=== PATIENT | female | born 1980 | race Caucasian/White ===

== ENCOUNTER 2018-01-07 15:35 | Observation (INO) | payer OTHER ==
[~2018-01-07] VITALS: Ht 157.5 cm; Wt 81.2 kg
[2018-01-07] MEDS ORDERED: METOPROLOL TARTRATE 50 MG TAB PO ONE (17:30)
[2018-01-07 17:57] LABS: BASOPHILS # (AUTO) 0.1 (0.0-0.1); BASOPHILS % 0.6 % (0.0-1.0); EOSINOPHILS # (AUTO) 0.2 (0.0-0.4); EOSINOPHILS % 1.8 % (0.0-6.0); HEMATOCRIT 40.7 % (34.2-44.1); HEMOGLOBIN 13.3 g/dL (12.0-16.0); LYMPHOCYTES # (AUTO) 2.1 (1.0-3.2); LYMPHOCYTES % 21.6 % (18.0-39.1); MEAN CORPUSCULAR HEMOGLOBIN 33.9 pg (28-32); MEAN CORPUSCULAR HGB CONC 32.7 g/dL (31-35); MEAN CORPUSCULAR VOLUME 103.8 fL (81-99); MONOCYTES # (AUTO) 0.6 (0.2-0.8); MONOCYTES % 5.9 % (4.4-11.3); NEUTROPHILS # (AUTO) 6.6 (2.1-6.9); NEUTROPHILS % 69.6 % (38.7-80.0); PLATELET COUNT 256 x10e3/uL (140-360); RED BLOOD COUNT 3.92 x10e6/uL (3.6-5.1); RED CELL DISTRIBUTION WIDTH 14.7 % (11.7-14.4)
[2018-01-07] MEDS ORDERED: ENOXAPARIN SODIUM INJ 100 MG/ML SYR SC SCH ×2 (18:00→20:00)
[2018-01-07] MEDS ORDERED: RIVAROXABAN 10 MG TABLET PO NR (18:00)
[2018-01-07] MEDS ORDERED: SODIUM CHLORIDE FLUSH 10 ML SYR INJ PRN (18:00)
[2018-01-07] MEDS ORDERED: ASPIRIN 81 MG CHEW TAB PO ONE (18:00)
[2018-01-07 18:12] LABS: INR 0.91; PROTHROMBIN TIME 13.1 seconds (11.9-14.5)
[2018-01-07 18:13] LABS: PARTIAL THROMBOPLASTIN TIME 26.6 seconds (23.8-35.5)
[2018-01-07] MEDS ORDERED: METOPROLOL TARTRATE 25 MG TAB PO SCH (18:15)
[2018-01-07 18:21] LABS: ALANINE AMINOTRANSFERASE 16 IU/L (0-55); ALBUMIN 3.3 g/dL (3.5-5.0); ALBUMIN/GLOBULIN RATIO 0.9 (0.8-2.0); ALKALINE PHOSPHATASE 70 IU/L (40-150); ANION GAP 13.8 mmol/L (8-16); BLOOD UREA NITROGEN 14 mg/dL (7-26); BUN/CREATININE RATIO 13 (6-25); CALCIUM 8.7 mg/dL (8.4-10.2); CARBON DIOXIDE 16 mmol/L (22-29); CHLORIDE 113 mmol/L (98-107); CREATININE, SERUM 1.05 mg/dL (0.57-1.11); EST GLOMERULAR FILTRATION RATE 59 ML/MIN (60-); GLUCOSE 73 mg/dL (74-118); POTASSIUM 3.8 mmol/L (3.5-5.1); SODIUM 139 mmol/L (136-145)
[2018-01-07 18:32] LABS: CREATINE KINASE 28 IU/L (29-168)
[2018-01-07] MEDS: SODIUM CHLORIDE 0.9% 1000ML 1,000 ML IV SCH (18:37)
--- NOTE | 2018-01-07 19:58 | Diagnostic Imaging Report ---
EXAM: CT CHEST W DATE: 01/07/2018 5:53 PM INDICATION: DVT COMPARISON: None TECHNIQUE: Multidetector CT scanning of the chest was performed. Coronal and sagittal multiplanar reformations were obtained. PE protocol. CT low dose techniques were utilized, as applicable. IV Contrast: 100 ml Isovue 370/300 FINDINGS: There are bilateral pulmonary emboli involving the right interlobar artery extending into the segmental and subsegmental levels of the right middle and lower lobe, and left inferior lobar artery extending into the segmental and subsegmental left lower lobe and lingular arteries. LUNGS AND PLEURA: Peripheral left basilar opacity. No edema. No effusions or pneumothorax. HEART, MEDIASTINUM, VESSELS: Normal heart size without CT evidence of right heart strain. Main pulmonary artery is normal in caliber, 2.2 cm. No pericardial effusion. No adenopathy. UPPER ABDOMEN: Note is made of a small fat-containing left Bochdalek hernia. Postsurgical change status post gastric sleeve with small hiatal hernia. Cholecystectomy. MUSCULOSKELETAL: No acute findings. IMPRESSION: 1. Positive for bilateral pulmonary emboli, as above. No CT evidence of right heart strain. 2. Focal left basilar atelectasis and/or small infarct. Discussed with Physician: RICHIE BORJAS MD at 7:56 PM on 01/07/2018. Signed by: Dr Génesis Etienne MD on 01/07/2018 7:56 PM
[2018-01-07] MEDS ORDERED: ENOXAPARIN INJ 80 MG/0.8 ML SYR SC ONE (20:06)
[2018-01-07] MEDS: ENOXAPARIN INJ 80 MG/0.8 ML SYR SC SCH (20:15)
[2018-01-07] MEDS ORDERED: POTASSIUM CHLOR8 ME1 PO (20:22)
[2018-01-07] MEDS ORDERED: TIZANIDINE HCL4 MG PO (20:22)
[2018-01-07] MEDS ORDERED: TRAZODONE HCL100 MG PO (20:22)
[2018-01-07] MEDS ORDERED: CYMBALTA30 MG PO (20:22)
[2018-01-07] MEDS ORDERED: CLONAZEPAM0.5 M1 PO (20:22)
[2018-01-07] MEDS ORDERED: JUNEL FE 1 MG-1 EACH PO (20:22)
[2018-01-07] MEDS ORDERED: BUPROPION HCL150 M2 PO (20:22)
[2018-01-07] MEDS ORDERED: PROMETHAZINE HC25 M1 PO (20:22)
[2018-01-07] MEDS ORDERED: ATENOLOL25 MG PO (20:22)
[2018-01-07] MEDS ORDERED: ACETAZOLAMIDE500 M1 PO (20:22)
[2018-01-07] MEDS ORDERED: BUSPIRONE HCL10 MG PO (20:22)
[2018-01-07] MEDS ORDERED: AMITRIPTYLINE H50 MG PO (20:22)
[2018-01-07] MEDS ORDERED: PROPRANOLOL HCL20 MG PO (20:22)
[2018-01-07] MEDS ORDERED: VIIBRYD40 MG PO (20:22)
[2018-01-07] MEDS ORDERED: ONDANSETRON HCL INJ 2 MG/ML VIAL IV PRN (20:30)
[2018-01-07] MEDS ORDERED: MORPHINE SULFATE 2 MG/ML SYR IV PRN (20:30)
[2018-01-07] MEDS ORDERED: IOPAMIDOL 370 MG/ML 200 ML INFUS..BTL INJ ONE (20:45)
[2018-01-07] MEDS ORDERED: SODIUM CHLORIDE 0.9% 50ML 50 ML ONE (20:45)
[2018-01-07] MEDS ORDERED: ENOXAPARIN INJ 80 MG/0.8 ML SYR SC SCH (21:00)
[2018-01-07 21:44] VITALS: BP 130/66
[2018-01-07 21:53] VITALS: BP 130/66
[2018-01-07] MEDS ORDERED: NEXIUM20 MG PO (23:29)
[2018-01-07] MEDS ORDERED: CEPHALEXIN500 MG PO (23:29)
[2018-01-07] MEDS ORDERED: NATURE-THROID130 MG PO (23:29)
[2018-01-07] MEDS ORDERED: QUETIAPINE FUM100 MG PO (23:29)
[2018-01-07] MEDS ORDERED: BUSPIRONE HCL 5 MG TAB PO PRN (23:45)
[2018-01-07] MEDS ORDERED: CLONAZEPAM 0.5 MG TAB PO PRN (23:45)
[2018-01-07] MEDS ORDERED: TIZANIDINE HCL 4 MG TAB PO PRN (23:45)
[2018-01-08] VITALS (7 sets, daily range): BP systolic 119–166; BP diastolic 60–90
[2018-01-08] MEDS ORDERED: PROMETHAZINE HCL 25 MG TAB PO PRN
[2018-01-08] MEDS ORDERED: PROMETHAZINE HCL 25 MG TAB PO SCH
[2018-01-08 03:02] LABS: BASOPHILS % 0.3 % (0.0-1.0); EOSINOPHILS # (AUTO) 0.2 (0.0-0.4); EOSINOPHILS % 2.4 % (0.0-6.0); HEMATOCRIT 36.6 % (34.2-44.1); HEMOGLOBIN 12.2 g/dL (12.0-16.0); LYMPHOCYTES # (AUTO) 2.6 (1.0-3.2); LYMPHOCYTES % 29.1 % (18.0-39.1); MEAN CORPUSCULAR HEMOGLOBIN 33.9 pg (28-32); MEAN CORPUSCULAR HGB CONC 33.3 g/dL (31-35); MEAN CORPUSCULAR VOLUME 101.7 fL (81-99); MONOCYTES # (AUTO) 0.5 (0.2-0.8); MONOCYTES % 5.4 % (4.4-11.3); NEUTROPHILS # (AUTO) 5.5 (2.1-6.9); NEUTROPHILS % 62.2 % (38.7-80.0); PLATELET COUNT 224 x10e3/uL (140-360); RED CELL DISTRIBUTION WIDTH 14.7 % (11.7-14.4)
[2018-01-08 03:13] LABS: ALANINE AMINOTRANSFERASE 13 IU/L (0-55); ALBUMIN 2.7 g/dL (3.5-5.0); ALBUMIN/GLOBULIN RATIO 0.9 (0.8-2.0); ALKALINE PHOSPHATASE 55 IU/L (40-150); ANION GAP 11.4 mmol/L (8-16); BLOOD UREA NITROGEN 9 mg/dL (7-26); BUN/CREATININE RATIO 10 (6-25); CALCIUM 7.9 mg/dL (8.4-10.2); CARBON DIOXIDE 13 mmol/L (22-29); CHLORIDE 116 mmol/L (98-107); CHOL/HDL RATIO 2.5 (3.0-3.6); CHOLESTEROL 163 MD/DL (0-199); CREATININE, SERUM 0.87 mg/dL (0.57-1.11); EST GLOMERULAR FILTRATION RATE > 60 ML/MIN (60-); GLUCOSE 118 mg/dL (74-118); HDL CHOLESTEROL 65 MG/DL (40-60); LDL CHOLESTEROL 31 MG/DL (60-130); POTASSIUM 3.4 mmol/L (3.5-5.1); SODIUM 137 mmol/L (136-145); TRIGLYCERIDES 337 MG/DL (0-149)
[2018-01-08 03:33] LABS: CREATINE KINASE 23 IU/L (29-168)
--- NOTE | 2018-01-08 04:41 | Consultation ---
DATE OF CONSULTATION: January 07, 2018 PULMONARY MEDICINE CONSULT REFERRING PHYSICIAN: Dr. Macias, outpatient physician. Dr. Quintana, hospital physician REASON FOR REFERRAL: Thromboembolic disease. HISTORY: Mrs. Paula is a pleasant 37-year-old female with thromboembolic disease. The patient 3 weeks ago had right arm pain. The distribution was from her wrist all the way to her shoulder. The patient claims that she went to the emergency room and she was recommended to take some aspirin. The patient was diagnosed with superficial thrombophlebitis at that time. The patient states that the arm condition did get better. For the last 3 days, she has been having right leg pain. The patient was having trouble mobilizing. She was having trouble going upstairs. She was urged to come to the emergency room where she had some evaluation done. The patient was diagnosed with popliteal and posterior tibial vein thrombosis. Thigh veins were not noted to have venous thrombosis per the preliminary findings. The patient was admitted for further care. CT of the chest demonstrates 22 mm main pulmonary artery, nodular solid opacity with low attenuation changes in the middle of the lesion just under the pleura. Otherwise bilateral pulmonary emboli were noted. The patient is a long-time smoker. The patient furthermore was obese, but went through bariatric surgery. The patient is on estrogen pellets called [employer] for 4 years which according to the internet says is estradiol related. PAST MEDICAL HISTORY 1. Obesity, status post gastric sleeve in July 2013. Weight is changed from 200 pounds and now is at 163 pounds. 2. Pseudotumor cerebri, still active but improved. 3. PTSD. 4. Degenerative joint disease. 5. Reported bipolar disorder with schizophrenia. CURRENT MEDICATIONS: Medication list reviewed per electronic record. ALLERGIES: NO KNOWN DRUG ALLERGIES. SOCIAL HISTORY: She smokes 1 pack per day since age 15 to now. No heavy alcohol. Cocaine, she snored it daily for 4 years a long time ago, but never did IV drugs. 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 She lives with her . FAMILY HISTORY: Noncontributory to this. No abdominal disease in the family. REVIEW OF SYSTEMS GENERAL: No unintentional weight changes. OPHTHALMOLOGIC: No double vision. ENT: No dry mouth. PULMONARY: No asthma. IMMUNOLOGIC: No allergies. CARDIAC: No heart attacks. GI: No constipation. : No blood in the urine. MUSCULOSKELETAL: Some back pain. NEUROLOGIC: No seizures. PSYCHIATRIC: Euthymic recently. PHYSICAL EXAMINATION VITAL SIGNS: Afebrile, vital signs noted per electronic record, stable. HEENT: Normocephalic, atraumatic. NECK: Supple. Trachea midline. LUNGS: Bilateral air entry, limited but clear. CARDIOVASCULAR: S1, S2. No murmurs, rubs, or gallops. ABDOMEN: Soft, nontender. EXTREMITIES: No clubbing and no cyanosis. There is minimal discrepancy in leg size. INTEGUMENT: No rash and no purpura. LABS: BUN 14, creatinine 1.0, and bicarbonate 16. White count 10, hematocrit 41, and platelets 251,000. LFTs are normal. IMPRESSION 1. Bilateral pulmonary emboli. 2. Right distal deep venous thrombosis. 3. Active smoker. 4. Active use of estrogen-related products. 5. History of sleeve gastrectomy in 2013. 6[address] lung nodule, low attenuation at center but not at fat density 7. History of post-traumatic stress disorder. 8. Sedentary job. 9. History of morbid obesity and pseudotumor cerebri. 10. Degenerative joint disease. PLAN: Continue blood thinners at appropriate dosing. The patient is to have an echo. She requires ambulation. If she is able to tolerate these, then she can probably be discharged sooner rather than later given these small residual DVTs present in her. The patient was counseled highly to stop smoking and to stop the estrogen replacement and she can possibly come off anticoagulation after 3 to 6 months of time once the estrogen implant effects have dissipated. The patient should continue vitamins for gastrectomy. The patient is recommended for [address] chest to re-assess the lung lesion. BNP level will be checked to assess heart strain. Thank you very much Dr. Macias and Dr. Dagoberto Quintana for allowing me a chance to participate in the care of Mrs. Paula. Please do not hesitate to contact me if I could help in any way. Job#: [id number] RTY MTDD
[2018-01-08] MEDS: THYROID 60 MG TAB PO SCH (05:43)
[2018-01-08] MEDS: SODIUM CHLORIDE 0.9% 1000ML 1,000 ML IV SCH ×2 (05:43→14:00)
[2018-01-08] MEDS ORDERED: NORETHINDRONE ACETATE PO SCH (09:00)
[2018-01-08] MEDS ORDERED: [UNRECOGNIZED DRUG - OTHER] PO SCH (09:00)
[2018-01-08] MEDS ORDERED: ETHINYL ESTRADIOL PO SCH (09:00)
[2018-01-08] MEDS ORDERED: FERROUS FUMARATE PO SCH (09:00)
[2018-01-08] MEDS: ENOXAPARIN INJ 80 MG/0.8 ML SYR SC SCH ×2 (09:29→20:42)
[2018-01-08] MEDS: FAMOTIDINE 20 MG/2 ML VIAL IV SCH ×2 (09:29→20:42)
[2018-01-08] MEDS: POTASSIUM CHLORIDE 10 MEQ TABCR PO SCH (09:29)
[2018-01-08] MEDS: PROPRANOLOL HCL 10 MG TAB PO SCH (09:29)
[2018-01-08] MEDS: ATENOLOL 50 MG TAB PO SCH (09:30)
[2018-01-08] MEDS: BUPROPION HCL SR 150 MG TAB PO SCH (09:30)
[2018-01-08] MEDS: PANTOPRAZOLE SOD 40 MG TABEC PO SCH (09:30)
[2018-01-08] MEDS: CEPHALEXIN 500 MG CAP PO SCH ×4 (09:30→20:42)
[2018-01-08 12:40] LABS: CREATINE KINASE 24 IU/L (29-168)
[2018-01-08] MEDS ORDERED: XARELTO20 MG PO (14:37)
[2018-01-08] MEDS ORDERED: XARELTO15 MG PO (14:37)
--- NOTE | 2018-01-08 20:54 | Progress Note ---
DATE: January 08, 2018 PULMONARY MEDICINE PROGRESS NOTE SUBJECTIVE: Ms. Paula was seen and examined at bedside. Echo showed 60% to 65% left ventricular ejection fraction with estimated RVSP of 23 mmHg. Patient today mobilized to restroom without any problems. Patient without any new worsened leg tightness nor chest pain. REVIEW OF SYSTEMS: No headaches, no rash. OBJECTIVE VITALS: Afebrile, vital signs noted per electronic record. GENERAL: No acute distress, alert and calm. HEENT: Normocephalic, atraumatic. NECK: Supple. Throat midline. LUNGS: Bilateral air entry, clear. CARDIOVASCULAR: S1 and S2. No murmurs, rubs or gallops. ABDOMEN: Soft and nontender. EXTREMITIES: No clubbing, no cyanosis. There is only minimal change in the lower legs. INTEGUMENT: No rash. No purpura. LABS: Potassium 3.4, BUN 9, and creatinine 0.9. White count 9 and hematocrit 37. IMPRESSION AND PLAN 1. Acute pulmonary emboli. 2. Distal deep venous thrombosis. 3. Chronic smoker. 4. History of estrogen implants. Continue anticoagulation at this time. Patient remained on acetazolamide for pulmonary indication. Continue other medicines. I have counseled her on the need for anticoagulation as of now undetermined period o time as still not clear me how long these supposed to be affecting the patient with estrogen. Patient needs to quit smoking. Patient today will begin mobilization and she is doing good. Consideration for this drug soon can be done as remnant of the venous thrombosis appeared to be small and distal. I have talked to her about different anticoagulants and she agrees to try now anticoagulants. Job#: [id number] [facility]CK[facility]
[2018-01-08] MEDS ORDERED: AMITRIPTYLINE HCL 25 MG TAB PO SCH (21:00)
[2018-01-08] MEDS ORDERED: TRAZODONE HCL 50 MG TAB PO SCH (21:00)
[2018-01-08] MEDS ORDERED: QUETIAPINE FUMARATE 100 MG TAB PO SCH (21:00)
[2018-01-08] MEDS ORDERED: ACETAZOLAMIDE 500 MG CAP PO SCH (21:00)
[2018-01-09] MEDS: SODIUM CHLORIDE 0.9% 1000ML 1,000 ML IV SCH
[2018-01-09 00:19] VITALS: BP 143/98
[2018-01-09 04:00] VITALS: BP 123/73
[2018-01-09] MEDS: THYROID 60 MG TAB PO SCH (05:52)
[2018-01-09 07:53] VITALS: BP 102/56
[2018-01-09] MEDS: POTASSIUM CHLORIDE 10 MEQ TABCR PO SCH (08:34)
[2018-01-09] MEDS: PANTOPRAZOLE SOD 40 MG TABEC PO SCH (08:34)
[2018-01-09] MEDS: FAMOTIDINE 20 MG/2 ML VIAL IV SCH (08:34)
[2018-01-09] MEDS: PROPRANOLOL HCL 10 MG TAB PO SCH (08:34)
[2018-01-09] MEDS: CEPHALEXIN 500 MG CAP PO SCH (08:34)
[2018-01-09] MEDS: BUPROPION HCL SR 150 MG TAB PO SCH (08:34)
[2018-01-09] MEDS: ATENOLOL 50 MG TAB PO SCH (08:34)
[2018-01-09] MEDS: ENOXAPARIN INJ 80 MG/0.8 ML SYR SC SCH (08:34)
[2018-01-09 08:37] VITALS: BP 102/56
== END 2018-01-09 11:43 | disposition home or self-care (01) ==
LOC: ER 15:35 → ERHOLD 20:51 → INTOOBSV 20:51 → MED/SURG 21:08
DX: I26.99 Other pulmonary embolism without acute cor pulmonale (principal); I82.431 Acute embolism and thrombosis of right popliteal vein; I82.441 Acute embolism and thrombosis of right tibial vein; I10 Essential (primary) hypertension; F20.9 Schizophrenia, unspecified; F31.9 Bipolar disorder, unspecified; Z98.84 Bariatric surgery status; G93.2 Benign intracranial hypertension; F43.10 Post-traumatic stress disorder, unspecified; M19.90 Unspecified osteoarthritis, unspecified site; F17.210 Nicotine dependence, cigarettes, uncomplicated; R91.8 Other nonspecific abnormal finding of lung field; Z79.818 Long term (current) use of other agents affecting estrogen receptors and estrogen levels
CPT/HCPCS: 36415 ×2; 71260; 80053 ×2; 80061; 82550 ×2; 82553 ×2; 83880; 84443; 84484 ×2; 84702; 85025 ×2; 85610; 85730; 93306; 93971; 99284; G0378 ×3; J1650 ×3; J7030 ×2; Q9967; S0164 ×2

== ENCOUNTER 2019-06-14 10:54 | Emergency (ER) | payer OTHER ==
[~2019-06-14] VITALS: Ht 157.5 cm; Wt 81.2 kg
[~2019-06-14 10:54] MED LIST: ACETAZOLAMIDE500 M1 PO; AMITRIPTYLINE H50 MG PO; ATENOLOL25 MG PO; BUPROPION HCL150 M2 PO; BUSPIRONE HCL10 MG PO; CEPHALEXIN500 MG PO; CLONAZEPAM0.5 M1 PO; CYMBALTA30 MG PO; JUNEL FE 1 MG-1 EACH PO; NATURE-THROID130 MG PO; NEXIUM20 MG PO; POTASSIUM CHLOR8 ME1 PO; PROMETHAZINE HC25 M1 PO; PROPRANOLOL HCL20 MG PO; QUETIAPINE FUM100 MG PO; TIZANIDINE HCL4 MG PO; TRAZODONE HCL100 MG PO; VIIBRYD40 MG PO; XARELTO15 MG PO; XARELTO20 MG PO
[2019-06-14] MEDS ORDERED: ALBUTEROL SULF 0.083% NEB SOLN 3 ML NEB NEB STA (11:24)
[2019-06-14] MEDS ORDERED: IPRATROPIUM BROMIDE 0.02% 2.5 ML NEB NEB STA (11:24)
[2019-06-14] MEDS ORDERED: PREDNISONE 20 MG TAB PO ONE (11:30)
[2019-06-14 12:42] VITALS: BP 149/96
== END 2019-06-14 12:51 | disposition home or self-care (01) ==
LOC: ER 10:54
DX: R50.9 Fever, unspecified (principal); R05 Cough; J20.9 Acute bronchitis, unspecified; I10 Essential (primary) hypertension; F41.9 Anxiety disorder, unspecified; Z98.84 Bariatric surgery status
CPT/HCPCS: 94640; 94664; 99283; J7512